=== PATIENT | male | born 1965 | race Caucasian/White ===

== ENCOUNTER 2018-07-07 14:21 | Emergency (ER) | payer OTHER, SELFPAY ==
[2018-07-07 14:25] VITALS: BP 125/82; PULSE 90; RESP 19; TEMP 36.3; O2SAT 96; BMI 30.1
--- NOTE | 2018-07-07 15:02 | EKG12_ITS ---
Test Reason : CP (HX OF SVT) Blood Pressure : / mmHG Vent. Rate : 079 BPM Atrial Rate : 079 BPM P-R Int : 180 ms QRS Dur : 080 ms QT Int : 352 ms P-R-T Axes : 047 002 026 degrees QTc Int : 403 ms Normal sinus rhythm Normal ECG Confirmed by PRANEETH TYSON, VICKY ([id number]), acquisitions editor JASSON MARINELLI ([id number] on 07/11/2018 11:42:28 AM Referred By: DIPIKA/ROSA Confirmed By:VICKY DACOSTA MD
[2018-07-07 15:05] VITALS: O2SAT 99
--- NOTE | 2018-07-07 15:05 | RAD_ITS ---
STUDY: X-RAY CHEST REASON FOR EXAM: Male, 53 years old. Chest pain TECHNIQUE: Frontal view of the chest COMPARISON: None. FINDINGS: The lungs are clear. There are no pleural effusions. There is no pneumothorax. The heart is normal in size. The visualized osseous structures are within normal limits. RAD/Chest 1 View (Portable) IMPRESSION: No acute thoracic pathology. Electronically Signed: Jorge Smith, at 15:30 EST Tel , Service support ,
[2018-07-07 15:16] LABS: Absolute Lymphocyte Count 1.66 X10^3/ul (0.83-4.51); Basophil# 0.03 X10^3/uL; Basophil% 0.6 % (0-1); Eosinophil# 0.11 X10^3/uL; Eosinophils% 2.1 % (0-5); Hemoglobin 15.2 g/dl (13.0-16.5); Lymphocyte # 1.66 X10^3/ul (4.0); Lymphocyte % 31.9 % (19-41); Mean Corp Hgb Conc 32.3 g/gl (32-36); Mean Corpuscular Hgb 27.6 pg (27.0-32.0); Mean Corpuscular Volume 85.5 fL (80-94); Monocyte# 0.41 X10^3/uL; Monocyte% 7.9 % (0-10); Neutrophil % 57.5 % (47-70); Platelet Count 186 K/mm3 (150-450); RBC Distribution Width CV 13.4 % (11.6-14.6); RBC Distribution Width SD 41.7 fl (35.1-43.9); White Blood Count 5.2 K/mm3 (4.4-11.0)
--- NOTE | 2018-07-07 15:20 | ED.VISSUMM ---
- ER Visit Summary Date of Service: 07/07/18 Chief Complaint: SVT History of Present Illness: The patient is a 53 M who presents today with presumed SVT. He has a history of SVT and has seen Dr. Donald at the [facility] in the past. He has not had an EP study. He was previously on verapamil, but discontinued this under his doctor's order because he had headaches and was tired when taking it. He is normally able to stop his SVT with vagal maneuvers. His symptoms did not stop today and so he called 911. He felt that his heart was racing. He felt sweaty and lightheaded. He felt chest ache that went to his neck. Upon EMS arrival, his symptoms resolved. He currently has no symptoms. Denies any history of coronary disease. Denies any other medical history of change in medications. He is undergoing a lot of stress. Physical Examination: Afebrile and vital signs unremarkable. Alert and oriented. No acute distress. Skin appears normal without diaphoresis or pallor. Heart regular rate and rhythm. Lungs clear. Abdomen soft and nontender. No JVD. Calves soft and supple. Test Results: EKG showed sinus rhythm at a rate of 79. Laboratory studies and chest x-ray are pending. Emergency Department Course and Treatment: Patient is currently in normal sinus rhythm. He was placed on a monitor. 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 Workup was unremarkable. I spoke with Dr. Patterson and also Dr. Reed at the [facility]. They recommend no medications at this time. Discharged home and follow-up. Call on Monday to follow-up with EP. Treatment Plan: As above Disposition: Discharge Impression: 1. Tachycardia This note was generated with [employer] dictation software. It may contain incorrect words, spelling, and punctuation that were not noted in review of the chart prior to signing ED Disposition - Plan for ED Patient: Chief Complaint: Chest Pain Referrals: Salvador Robledo MD [Primary Care Provider] -
[2018-07-07 15:24] LABS: POSITIVE COUNT NO; POSITIVE DIFFERENTIAL NO; POSITIVE MORPHOLOGY NO
--- NOTE | 2018-07-07 15:26 | ED.DCSUM_ITS ---
- ER Visit Summary Date of Service: 07/07/18 Chief Complaint: SVT History of Present Illness: The patient is a 53 M who presents today with presumed SVT. He has a history of SVT and has seen Dr. Donald at the [facility] in the past. He has not had an EP study. He was previously on verapamil, but discontinued this under his doctor's order because he had headaches and was tired when taking it. He is normally able to stop his SVT with vagal maneuvers. His symptoms did not stop today and so he called 911. He felt that his heart was racing. He felt sweaty and lightheaded. He felt chest ache that went to his neck. Upon EMS arrival, his symptoms resolved. He currently has no symptoms. Denies any history of coronary disease. Denies any other medical history of change in medications. He is undergoing a lot of stress. Physical Examination: Afebrile and vital signs unremarkable. Alert and oriented. No acute distress. Skin appears normal without diaphoresis or pallor. Heart regular rate and rhythm. Lungs clear. Abdomen soft and nontender. No JVD. Calves soft and supple. Test Results: EKG showed sinus rhythm at a rate of 79. Laboratory studies and chest x-ray are pending. Emergency Department Course and Treatment: Patient is currently in normal sinus rhythm. He was placed on a monitor. 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 Workup was unremarkable. I spoke with Dr. Patterson and also Dr. Reed at the [facility]. They recommend no medications at this time. Discharged home and follow-up. Call on Monday to follow-up with EP. Treatment Plan: As above Disposition: Discharge Impression: 1. Tachycardia This note was generated with [employer] dictation software. It may contain incorrect words, spelling, and punctuation that were not noted in review of the chart prior to signing ED Disposition - Plan for ED Patient: Chief Complaint: Chest Pain Referrals: Salvador Robledo MD [Primary Care Provider] -
[2018-07-07 15:27] LABS: Anion Gap 8 (5-15); BUN 22 mg/dL (7-18); Chloride 107 mmol/L (98-107); Creatinine, Serum 0.96 mg/dL (0.70-1.30); EST Glomerular Filtration Rate 87 mL/min (>60); Est Glom Filt Rate - Afr Amer 106 mL/min (>60); Estimated Creatinine Clearance 86.09 ml/min; Glucose 81 mg/dL (74-106); Magnesium 2.2 mg/dL (1.6-2.6); Potassium 3.9 mmol/L (3.5-5.1); Sodium Level 143 mmol/L (136-145)
[2018-07-07 16:32] VITALS: BP 115/77; PULSE 78; RESP 15; O2SAT 98
--- NOTE | 2018-07-07 16:45 | ED.DEP ---
ED Disposition - Plan for ED Patient: Chief Complaint: Chest Pain Instructions: ED Tachycardia Pat PSVT Additional Instructions: follow up with Dr. Donald. Call monday for an appointment
[2018-07-07 16:55] VITALS: BP 148/77; PULSE 61; RESP 15; O2SAT 97
== END 2018-07-07 16:56 | disposition home or self-care (01) ==
PROVIDERS: Emergency Provider Emergency Medicine; Family Provider Family Medicine; PCP Family Medicine
DX: I47.1 Supraventricular tachycardia (principal); Z79.899 Other long term (current) drug therapy
CPT/HCPCS: 71045; 80048; 83735; 84484; 85025; 93005; 99285; A4216